=== PATIENT | female | born 1935 | race Caucasian/White ===

== ENCOUNTER → 2017-03-09 | Outpatient (CLI) | payer MEDICARE, OTHER ==
[~2017-03-09] MED LIST: AMLO10TA2 PO; ATOR10TA9 PO; CALCIUM PO; CELE200C PO; MULT-257 PO; OMEP-110 PO; TEMA7.5C PO
== END | disposition home or self-care (01) ==
LOC: CFH 09:41
PROVIDERS: ATTEND Internal Medicine
DX: G31.9 Degenerative disease of nervous system, unspecified (principal); K59.09 Other constipation
CPT/HCPCS: 70450